=== PATIENT | male | born 1950 | race African-American/Black ===

== ENCOUNTER 2020-05-10 09:23 | Emergency (ER) | payer MEDICARE ==
[2020-05-10] MEDS ORDERED: Ondansetron PF 4 MG/2 ML Vial ONE (09:58)
[2020-05-10] MEDS ORDERED: Morphine 4 MG/ML VIAL ONE (09:58)
[2020-05-10 10:17] LABS: #Lymphocytes 0.6 thou/uL (1.20-3.40); #Monocytes 0.4 thou/uL (0.11-0.59); #Neutrophils 3.5 thou/uL (1.40-6.50); %Basophils 0.4 % (0.0-1.0); %Eosinophils 0.2 % (0.0-10.0); %Lymphocytes 12.7 % (21.0-51.0); %Monocytes 8.9 % (0.0-10.0); %Neutrophils 77.9 % (42.0-75.0); Mean Corpuscular HGB CONC 33.5 g/dL (32.0-36.0); Mean Corpuscular Volume 98.6 fL (78.0-98.0); Mean Platelet Volume 7.5 fL (7.4-10.4); Platelet Count 134 thou/uL (130-400); RBC Distribution Width 11.6 % (11.5-14.5); Red Blood Cell (RBC) Count 3.94 mill/uL (4.70-6.10); White Blood Cell (WBC) Count 4.5 thou/uL (4.8-10.8)
[2020-05-10 10:34] LABS: ALT (SGPT) 42 U/L (8-55); AST (SGOT) 74 U/L (5-34); Alkaline Phosphatase 53 U/L (40-110); Anion Gap 15 mmol/L (10-20); BUN (Urea Nitrogen) 15 mg/dL (8.4-25.7); Bilirubin, Total 1.5 mg/dL (0.2-1.2); Calc. Creatinine Clearance 0 mL/min (70-130); Calcium 9.1 mg/dL (7.8-10.44); Carbon Dioxide 26 mmol/L (23-31); Chloride 103 mmol/L (98-107); Glucose 100 mg/dL (80-115); Lipase 72 U/L (8-78); Potassium 3.6 mmol/L (3.5-5.1); Sodium 140 mmol/L (136-145)
--- NOTE | 2020-05-10 10:42 | RAD ---
XR Chest 1 View Portable HISTORY: Cough FINDINGS: The heart is enlarged. There is a left-sided AICD. The lungs are expanded with the hazy opa cities. No pneumothoraces or pleural effusions are seen.
--- NOTE | 2020-05-10 12:24 | CT ---
CT OF ABDOMEN AND PELVIS PERFORMED WITH CONTRAST ENHANCEMENT: HISTORY: Weakness and low back pain. FINDINGS: There is ground-glass opacity within the right lung base with linear changes in the bases consistent with scarring. Although not entirely typical, the right lower lobe changes and some of the changes s een in the posterior segment of the right lobe would have to be considered as possible COVID pneumoni a. Liver shows mild fatty change. The spleen and pancreas regions are unremarkable. Gallbladder is mil dly distended. A small hiatal hernia is seen. Right and left adrenal glands are normal. There are 2 left renal cysts with a 3rd hypodense lesion w hich is indeterminate and has CT Hounsfield nit numbers of 74. It measures approximately 12 mm in si ze. No significant periaortic or mesenteric adenopathy. Eventration to the anterior abdominal wall in the midline. CT OF PELVIS PERFORMED WITH CONTRAST ENHANCEMENT: No adenopathy, mass, or free fluid. Review of osseous structures shows arthritic changes of the spine. IMPRESSION: 1. Ground-glass opacity within the right lung base. Some of this appears to represent some chronic change, but some of these changes could be on the basis of COVID pneumonia. 2. Indeterminate hypodense 12 mm lesion involving the left kidney has CT Hounsfield unit numbers trini t are not definitively a cyst. CT using renal mass protocol would be recommended for further assessm ent on a nonemergent basis. 3. Suggestion of some mild fatty change of the liver. 4. Mild gallbladder distention without any pericholecystic inflammatory change. POS: [facility]ARRIS
[2020-05-10] MEDS ORDERED: Iopamidol-370 76% 500 ML 1 ML ONE (13:01)
== END 2020-05-10 12:45 | disposition home or self-care (01) ==
LOC: ERS 09:23
DX: B34.9 Viral infection, unspecified (principal); M54.5 Low back pain; I42.9 Cardiomyopathy, unspecified; E78.5 Hyperlipidemia, unspecified; E78.00 Pure hypercholesterolemia, unspecified; I10 Essential (primary) hypertension
CPT/HCPCS: 71045; 74177; 80053; 83605; 83690; 84484; 85025; 93005; 94760; 96374; 96375; J2270; J2405; Q9967

== ENCOUNTER 2020-05-14 10:28 | Emergency (ER) | payer MEDICARE ==
[2020-05-14 11:48] LABS: #Lymphocytes 0.9 thou/uL (1.20-3.40); #Monocytes 0.7 thou/uL (0.11-0.59); #Neutrophils 5.3 thou/uL (1.40-6.50); %Basophils 0.2 % (0.0-1.0); %Eosinophils 0.5 % (0.0-10.0); %Lymphocytes 13.3 % (21.0-51.0); %Monocytes 10.2 % (0.0-10.0); %Neutrophils 75.8 % (42.0-75.0); Mean Corpuscular HGB CONC 33.6 g/dL (32.0-36.0); Mean Corpuscular Hemoglobin 32.9 pg (27.0-31.0); Mean Corpuscular Volume 97.9 fL (78.0-98.0); Mean Platelet Volume 7.4 fL (7.4-10.4); Platelet Count 247 thou/uL (130-400); RBC Distribution Width 11.8 % (11.5-14.5); Red Blood Cell (RBC) Count 3.97 mill/uL (4.70-6.10)
[2020-05-14] MEDS ORDERED: Acetaminophen 500 MG TAB ONE (11:50)
[2020-05-14 11:59] LABS: Lactic Acid 1.5 mmol/L (0.5-2.2)
--- NOTE | 2020-05-14 12:01 | RAD ---
XR Chest 1 View Portable History: Chest pain Comparison: Radiograph May 10, 2020 Findings: Extensive perihilar peripheral airspace opacities. Heart size mildly enlarged. No pneumotho rax. Dual-lead AICD/pacer electrode tips are similar. No acute osseous abnormality. Impression: Commonly reported imaging findings of COVID-19 pneumonia.
[2020-05-14 12:02] LABS: ALT (SGPT) 73 U/L (8-55); AST (SGOT) 91 U/L (5-34); Alkaline Phosphatase 67 U/L (40-110); Anion Gap 20 mmol/L (10-20); BUN (Urea Nitrogen) 16 mg/dL (8.4-25.7); Bilirubin, Total 1.9 mg/dL (0.2-1.2); CK (CPK) 498 U/L (30-200); Calc. Creatinine Clearance 0 mL/min (70-130); Calcium 9.4 mg/dL (7.8-10.44); Carbon Dioxide 22 mmol/L (23-31); Chloride 101 mmol/L (98-107); Globulin 4.9 g/dL (2.4-3.5); Glucose 85 mg/dL (80-115); Magnesium 2.7 mg/dL (1.6-2.6); Potassium 3.3 mmol/L (3.5-5.1); Protein, Total 8.9 g/dL (5.8-8.1); Sodium 140 mmol/L (136-145)
== END 2020-05-14 14:18 | disposition home or self-care (01) ==
LOC: ERS 10:28
DX: U07.1 COVID-19 (principal); E78.2 Mixed hyperlipidemia; I11.0 Hypertensive heart disease with heart failure; I50.9 Heart failure, unspecified
CPT/HCPCS: 36415; 71045; 80053; 82550; 83605; 83735; 83880; 84484; 85025; 93005

== ENCOUNTER 2020-10-01 09:28 | Outpatient (CLI) | payer MEDICARE ==
[2020-10-01 20:11] LABS: SARS-CoV-2 PCR by NAA Not Detected (NotDetected)
== END 2020-10-01 09:29 | disposition home or self-care (01) ==
LOC: LABBT 09:28
PROVIDERS: ATTEND Internal Medicine Gastroenterology
DX: Z01.812 Encounter for preprocedural laboratory examination (principal); Z86.010 Personal history of colon polyps; Z20.822 Contact with and (suspected) exposure to COVID-19
CPT/HCPCS: U0003; U0005; 87635

== ENCOUNTER 2020-10-06 06:16 | Day surgery (SDC) | payer MEDICARE ==
[2020-10-05 12:39] VITALS: BMI 31.7
[2020-10-06] MEDS ORDERED: PROPOFOL 200 MG/20 ML VIAL ONE (07:57)
[2020-10-06] MEDS ORDERED: Lidocaine 1% PF 5 ML VIAL ONE (07:57)
== END 2020-10-06 09:27 | disposition home or self-care (01) ==
LOC: SDC 06:16
PROVIDERS: ATTEND Internal Medicine Gastroenterology
PROC: 0DBK8ZX Excision of Ascending Colon, Via Natural or Artificial Opening Endoscopic, Diagnostic (ICD-10-PCS; principal; 2020-10-06)
PROC: 0DBL8ZX Excision of Transverse Colon, Via Natural or Artificial Opening Endoscopic, Diagnostic (ICD-10-PCS; 2020-10-06)
PROC: 3E0H8KZ Introduction of Other Diagnostic Substance into Lower GI, Via Natural or Artificial Opening Endoscopic (ICD-10-PCS; 2020-10-06)
DX: Z12.11 Encounter for screening for malignant neoplasm of colon (principal); D12.2 Benign neoplasm of ascending colon; K63.89 Other specified diseases of intestine; G89.29 Other chronic pain; M54.9 Dorsalgia, unspecified; I42.9 Cardiomyopathy, unspecified; I11.0 Hypertensive heart disease with heart failure; I50.9 Heart failure, unspecified; E78.00 Pure hypercholesterolemia, unspecified; G62.9 Polyneuropathy, unspecified; G47.30 Sleep apnea, unspecified; Z86.010 Personal history of colon polyps; Z87.891 Personal history of nicotine dependence; Z79.82 Long term (current) use of aspirin; Z79.899 Other long term (current) drug therapy; Z88.5 Allergy status to narcotic agent
CPT/HCPCS: 88305; J2704

== ENCOUNTER 2025-02-10 08:31 | Outpatient (CLI) | payer MEDICARE | END 2025-02-10 08:32 | disposition home or self-care (01) | LOC: ULT 08:31 | PROVIDERS: ATTEND Family Medicine | DX: R79.89 Other specified abnormal findings of blood chemistry (principal); N28.1 Cyst of kidney, acquired; K80.20 Calculus of gallbladder without cholecystitis without obstruction | CPT/HCPCS: 76700 ==